=== PATIENT | male | born 1955 | race Caucasian/White ===

== ENCOUNTER → 2016-12-20 | Outpatient (CLI) | payer BC ==
[~2016-12-20] MED LIST: ALLO100T PO; ASPI-232 PO; ASPI81TA28 PO; ATOR-22 PO; COEN1CAP28 PO; MELO15TA4 PO; MULT-1093 PO; MULT-513 PO; OMEG10007 PO; PRED10TA PO; TRIA0.022 TOP
--- NOTE | 2016-12-20 15:41 | DIAGNOSTIC IMAGING REPORT ---
MRI CERVICAL WITHOUT CONTRAST CLINICAL HISTORY: NECK/ R ARM PAIN TECHNIQUE: Sagittal and axial T1, T2 and STIR images were obtained. COMPARISON STUDY: No previous studies for comparison. There are no suspicious areas of marrow replacement. No intrinsic cervical cord lesions are visualized. C2-3: There is no evidence of disc bulge or focal herniation. There is no spinal or foraminal stenosis. C3-4: There is no evidence of disc bulge or focal herniation. There is no spinal or foraminal stenosis. C4-5: There are no disc bulges or focal herniations. There is minor right-sided foraminal narrowing. C5-6 :There is a mild circumferential disc bulge. There is no significant spinal or foraminal stenosis C6-7: There is an annular fissure and mild circumference disc bulge. There is no significant spinal or foraminal stenosis. C7-T1: There is no evidence of disc bulge or focal herniation. There is no evidence of spinal or foraminal stenosis. There is a 24 mm left lobe thyroid nodule. A dedicated thyroid ultrasound is recommended in follow-up. IMPRESSION: 1. Multilevel spondylitic changes. Mild right-sided foraminal narrowing at the C4-5 level 2. 24 mm left lobe thyroid nodule. A dedicated thyroid ultrasound is recommended in follow-up 3. No intrinsic cord lesions identified. Electronically signed by: Rolan John M.D. 12/20/2016 3:40 PM Dictated Date/Time: 12/20/2016 3:35 PM
== END | disposition home or self-care (01) ==
LOC: C.MRIBC 14:40
PROVIDERS: ATTEND Orthopaedic Surgery
DX: M54.2 Cervicalgia (principal); M79.601 Pain in right arm; E04.1 Nontoxic single thyroid nodule

== ENCOUNTER 2017-01-08 15:02 | Emergency (ER) | payer OTHER, BC ==
[~2017-01-08] VITALS: Ht 170.2 cm; Wt 79.2 kg
[2017-01-08 15:15] VITALS: TEMP 37; Ht 170.2 cm; Wt 79.2 kg
[2017-01-08] MEDS ORDERED: ALLO100T PO (15:43)
[2017-01-08] MEDS ORDERED: ASPI-232 PO (15:43)
[2017-01-08] MEDS ORDERED: MULT-513 PO (15:43)
[2017-01-08] MEDS ORDERED: PRED10TA PO (15:43)
[2017-01-08] MEDS ORDERED: MELO15TA4 PO (15:43)
[2017-01-08] MEDS ORDERED: OMEG10007 PO (15:43)
[2017-01-08] MEDS ORDERED: SODIUM CHLORIDE 0.9% 1000ML 1,000 ML IV ONE (15:56)
[2017-01-08] MEDS ORDERED: SODIUM CHLORIDE 0.9% 1000ML 1,000 ML IV STA (15:56)
[2017-01-08] MEDS ORDERED: LIDOCAINE/EPINEPH/TETRACAINE 1 EA SYR EXT STA (16:08)
--- NOTE | 2017-01-08 16:13 | EMERGENCY ROOM VISIT NOTE ---
History Report prepared by Edel: Luiza Santiago Under the Supervision of: Dr. Pedrito Linares M.D. 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 The patient stats that he was walking up about 40 stairs at work and started to feel lightheaded and dizzy and he next remembers waking up on the concrete ground after having a syncopal episode. The patient states he believes he lost consciousness. The patient states that when he feel he believes he feel straight back onto his back. The patient states he does have some pain in the back of his head where he landed. The patient states that his coworkers found him on the ground and called for EMS. The patient denies biting his tongue, any involuntary movements, bladder or bowel control lost. The patient state that currently he had a headache located at the back of his head and his jaw feels like it is not aligned but states he is able to open and close his jaw. The patient states that he had a recent MRI for a bulging disc and just finished a prescription of prednisone. The patient states that he has had similar dizzy spells in the past when he was walking up stair but states that he has never lost consciousness in the past and states it would just resolve. The patient denies any back pain or neck pain. 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 Patient denies back pain, neck pain, lost control of bladder or bowels, bitting tongue, involuntary movements. Review of Systems See HPI for pertinent positives & negatives. A total of 10 systems reviewed and were otherwise negative. Past Medical & Surgical Medical Problems: (1) Bulging disc Old medical records were reviewed. Nurse's notes were reviewed and I agree with. Family History FH: heart disease Social History Smoking Status: Never Smoker Marital Status: Housing Status: lives with significant other Occupation Status: employed Current/Historical Medications Scheduled Allopurinol (Zyloprim), 1 TAB PO DAILY Aspirin (Aspir-81), 81 TAB PO DAILY Fish Oil ([place]-3), 1 CAP PO DAILY Meloxicam (Mobic), 15 MG PO DAILY Multivitamins/Minerals (Mvi With Minerals), 1 TAB PO DAILY Prednisone (Prednisone), 10 MG PO TAPER Physical Exam Vital Signs Date Time Temp Pulse Resp B/P Pulse Ox O2 Delivery O2 Flow Rate FiO2 01/08/17 19:30 67 01/08/17 19:13 70 18 148/89 95 Room Air 01/08/17 17:02 67 18 158/98 96 Room Air 01/08/17 15:26 64 01/08/17 15:15 37.0 64 18 158/98 94 Room Air Physical Exam General: Non ill appearing middle age male in no acute distress. HEENT: Normal cephalic atraumatic. Pupils are equal round and reactive to light. Extraocular movements are intact. Oropharynx is pink with moist mucous membranes. No swelling of the mouth lips or tongue. There is a 2 cm posterior scalp laceration Neck: Supple with a midline trachea. No meningeal signs or stiffness, no JVD or bruits. No Stridor. Chest: Clear to auscultation bilaterally. No wheezes or rhonchi. No increased work of breathing. Heart: regular rate and rhythm. Abdomen: Soft nontender, nondistended without rebound guarding or rigidity. Extremities: No cyanosis clubbing or edema. No calf tenderness or assymetry Spine/Back. Non tender to palpation. No CVA tenderness Skin: Good turgor without rashes. Neurologic exam: Cranial nerves two through 12 are intact. Motor and sensation are intact and symmetrical throughout. Medical Decision & Procedures ER Provider Diagnostic Interpretation: CT results as stated below per my review and radiologist interpretation: CERVICAL SPINE CT CT DOSE: HISTORY: Trauma. Pain. eval for trauma TECHNIQUE: Multiaxial CT images of the cervical spine were performed and reformatted in the sagittal and coronal plane without the use of contrast. COMPARISON: None. FINDINGS: No fractures. No subluxation. Prevertebral soft tissues and the C1-C2 interval are intact. No pneumothorax. IMPRESSION: No fractures within the cervical spine. Electronically signed by: Julio Cesar Hatch M.D. 01/08/2017 5:05 PM Dictated Date/Time: 01/08/2017 5:[address] CT DOSE: 1125.35 mGy.cm HISTORY: Trauma eval for trauma TECHNIQUE: Multiaxial CT images of the head were performed without the use of intravenous contrast. Comparison: None. Findings: The paranasal sinuses and mastoid air cells are clear. The calvarium and skull base are intact. The ventricles and sulci are within normal limits. There is no mass, hematoma, midline shift, or acute infarct. Impression: No acute intracranial abnormality. Electronically signed by: Julio Cesar Hatch M.D. 01/08/2017 4:59 PM Dictated Date/Time: 01/08/2017 4:[address] DOSE: HISTORY: Trauma eval for trauma TECHNIQUE: Multiaxial CT images of the maxillofacial region were performed and reformatted in the coronal plane without the use of contrast. COMPARISON: None. FINDINGS: The visualized cervical spine, skull base, pterygoid plates, nasal bones, lamina papyracea, orbital floors, mandible, and zygomatic arches are intact. No fractures. The orbits are unremarkable. IMPRESSION: No fractures within the maxillofacial region. Electronically signed by: Julio Cesar Hatch M.D. 01/08/2017 5:01 PM Dictated Date/Time: 01/08/2017 5:00 PM X-ray results as stated below per interpretation by me and the radiologist: CHEST ONE VIEW PORTABLE CLINICAL HISTORY: CHEST PAIN dyspnea COMPARISON STUDY: No previous studies for comparison. FINDINGS: The bones soft tissues and hemidiaphragms are normal. The cardiomediastinal silhouette is normal. The lungs are clear. The pulmonary vasculature is normal. Minimal atelectasis right base IMPRESSION: Negative chest. Minimal atelectasis right base. Electronically signed by: Julio Cesar Hatch M.D. 01/08/2017 4:34 PM Dictated Date/Time: 01/08/2017 4:33 PM Laboratory Results 01/08/17 16:23 Red Blood Count 5.22, Mean Corpuscular Volume 85.1, Mean Corpuscular Hemoglobin 29.7, Mean Corpuscular Hemoglobin Concent 34.9, Mean Platelet Volume 9.0, Neutrophils (%) (Auto) 62.5, Lymphocytes (%) (Auto) 28.9, Monocytes (%) (Auto) 7.0, Eosinophils (%) (Auto) 0.5, Basophils (%) (Auto) 0.1, Neutrophils # (Auto) 6.43, Lymphocytes # (Auto) 2.97, Monocytes # (Auto) 0.72, Eosinophils # (Auto) 0.05, Basophils # (Auto) 0.01 01/08/17 16:23 Test 01/08/17 15:20 01/08/17 16:23 01/08/17 16:31 Bedside Glucose 104 mg/dl (70-99) White Blood Count 10.28 K/uL (4.8-10.8) Red Blood Count 5.22 M/uL (4.7-6.1) Hemoglobin 15.5 g/dL (14.0-18.0) Hematocrit 44.4 % (42-52) Mean Corpuscular Volume 85.1 fL (80-100) Mean Corpuscular Hemoglobin 29.7 pg (25-34) Mean Corpuscular Hemoglobin Concent 34.9 g/dl (32-36) Platelet Count 179 K/uL (130-400) Mean Platelet Volume 9.0 fL (7.4-10.4) Neutrophils (%) (Auto) 62.5 % Lymphocytes (%) (Auto) 28.9 % Monocytes (%) (Auto) 7.0 % Eosinophils (%) (Auto) 0.5 % Basophils (%) (Auto) 0.1 % Neutrophils # (Auto) 6.43 K/uL (1.4-6.5) Lymphocytes # (Auto) 2.97 K/uL (1.2-3.4) Monocytes # (Auto) 0.72 K/uL (0.11-0.59) Eosinophils # (Auto) 0.05 K/uL (0-0.5) Basophils # (Auto) 0.01 K/uL (0-0.2) RDW Standard Deviation 39.7 fL (36.4-46.3) RDW Coefficient of Variation 13.0 % (11.5-14.5) Immature Granulocyte % (Auto) 1.0 % Immature Granulocyte # (Auto) 0.10 K/uL (0.00-0.02) Anion Gap 5.0 mmol/L (3-11) Est Creatinine Clear Calc Drug Dose 60.5 ml/min Estimated GFR () 75.2 Estimated GFR (Non- 64.9 BUN/Creatinine Ratio 23.8 (10-20) Calcium Level 8.8 mg/dl (8.5-10.1) Total Bilirubin 0.5 mg/dl (0.2-1) Direct Bilirubin 0.1 mg/dl (0-0.2) Aspartate Amino Transf (AST/SGOT) 8 U/L (15-37) Alanine Aminotransferase (ALT/SGPT) 31 U/L (12-78) Alkaline Phosphatase 60 U/L (45-117) Total Creatine Kinase 36 U/L (39-308) Creatine Kinase MB 0.6 ng/ml (0.5-3.6) Creatine Kinase MB Ratio 1.7 (0-3.0) Total Protein 6.0 gm/dl (6.4-8.2) Albumin 3.5 gm/dl (3.4-5.0) Lipase 339 U/L (73-393) Thyroid Stimulating Hormone (TSH) 1.440 uIu/ml (0.300-4.500) Bedside Troponin I 0.000 ng/ml (0-0.045) Laboratory studies as stated above per my review. Medications Administered Medications (Trade) Dose Ordered Sig/Donavan Route Start Time Stop Time Status Last Admin Dose Admin Sodium Chloride 1,000 ml @ 999 mls/hr Q1H1M STAT IV 01/08/17 15:56 01/08/17 16:56 DC 01/08/17 16:29 999 MLS/HR Sodium Chloride (Nss 1000ml) 1,000 ml @ 150 mls/hr Q6H40M ONCE IV 01/08/17 15:56 01/08/17 20:19 DC 01/08/17 15:56 150 MLS/HR Tetracaine/ Epinephrine/ Lidocaine (L.e.t. Gel 4%/ 1:100/0.5%) 1 ea NOW STAT EXT 01/08/17 16:08 01/08/17 16:09 DC 01/08/17 16:08 1 EA Aspirin (Aspirin Chew) 324 mg NOW STAT PO 01/08/17 19:11 01/08/17 19:12 DC 01/08/17 19:16 324 MG Procedure Location: Scalp Total length: 1.5 cm Complexity: Simple Verbal consent was obtained after the risks and benefits were explained, including but not limited to bleeding, scarring, infection, pain, and bone/ nerve damage. At this time, the risks of the procedure are less than the risks of NOT performing the procedure. A time out was taken and the correct patient and site identified. The scalp was prepped with betadine. Copious irrigation was performed using saline. The skin was re-prepped with betadine, the hair cleared from the wound, and a sterile field set. The wound was explored for foreign bodies and none found. Debridement was not performed. The wound edges were approximated using 4 surgical dasia in the standard fashion. Hemostasis and excellent approximation was achieved. Antibacterial ointment and a sterile dressing applied. Detailed wound care instructions and signs and symptoms of infection reviewed with the patient. No complications and the patient tolerated the procedure well. ECG Indication: syncope Rate (beats per minute): 64 Rhythm: normal sinus Findings: T-wave inversion (Lead 3 only), no acute ischemic change, no ectopy, other (Poor R wave progression ) Change: EKG #2: Normal sinus rhythm at a rate of 68. Poor R wave progression. T wave inversion lateral and inferior which are worse than previous EKG #1 ED Course 1527: At this time the patient was evaluated by the medical student. The student s findings were discussed with me. We discussed a possible treatment plan and differential diagnoses for the patient. 1555: Past medical records reviewed. The patient was evaluated in room A4B, and a complete history and physical examination were performed. 1556: Ordered Sodium Chloride 1,000 ml @ 150 mls/hr IV, Sodium Chloride 1,000 ml @ 999 mls/hr IV. 1608: Ordered Tetracaine/Epinephrine/Lidocaine 1 ea EXT. 1821: I reevaluated the patient along with the medical student. 191: Ordered Aspirin Chew 324 mg PO 1945: Upon reevaluation, the patient is hemodyncamilly stable. I discussed the results and treatment plan with him. He verbalized agreement of the treatment plan. The patient was discharged home. Medical Decision Differentials include, but are not limited to; syncope, arrhythmia, intracranial hemorrhage, and electrolyte or metabolic abnormality. This patient comes in as described above. He was placed in room A4. He was evaluated for a syncopal episode after walking up some steps and feeling dizzy. He's feeling better. He felt dizzy does get this and has been off her emiliano been getting worse lately. He did hit his posterior scalp and has a small scalp. His tetanus shot is up-to-date. He is no chest pain shortness breath or pleurisy. No numbness weakness. No fever chills or recent illness. He says he feels good and would like to go home. I did a CAT scan of his head neck and face which was unremarkable. He was complaining his jaw felt slightly off however clinically opens and closes without difficulty. There is no dental fracture anhis CAT scan is unremarkable. He has no acute electrolyte or metabolic abnormalities. Chest x-ray is unremarkable. His initial EKG had some T wave inversion in one lead . I did a follow-up EKG and he has more T wave inversions inferiorly and laterally. His troponin is negative. We repaired his laceration as outlined above. I talked to the patient and his at length. He adamantly does not want stay . I told him I'm concerned that this may have been cardiac related as it was exertional and he had a syncopal episode additionally does have some EKG changes that looked worse on the second than the first. I told him that I'm concerned that he could've a blockage or electrical problem with his heart which could cause him to have an irregular heartbeat or cause him to pass out or have a heart attack or . I told him that we should admit him to further evaluate this and for safety. He did get aspirin 324 mg chewable here the patient is adamant that he does not want to be admitted and he does understand the risk and my concerns. 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 I do want him to have very close follow-up if he is going to refuse admission. I also encouraged him return if he has recurrence of symptoms, chest pain, shortness of breath, any new problems or concerns. Again the patient and his were happy with plan and will have close follow-up tomorrow as he declines admission. Impression Primary Impression: Pneumonia Additional Impression: Weakness Scribe Attestation The scribe's documentation has been prepared under my direction and personally reviewed by me in its entirety. I confirm that the note above accurately reflects all work, treatment, procedures, and medical decision making performed by me. Departure Information Dispostion Home / Self-Care Referrals No Doctor, Assigned (PCP) Forms HOME CARE DOCUMENTATION FORM, IMPORTANT VISIT INFORMATION Patient Instructions [facility] Additional Instructions REst Drink plenty of fluids Use an enteric coated aspirin 324 mg one a day Return if:worsening of symptoms, chest pain, recurrance of symptoms, any new problems or concerns Follow-up with your doctor tommorrow for recehck Problem Qualifiers
--- NOTE | 2017-01-08 16:36 | DIAGNOSTIC IMAGING REPORT ---
CHEST ONE VIEW PORTABLE CLINICAL HISTORY: CHEST PAIN dyspnea COMPARISON STUDY: No previous studies for comparison. FINDINGS: The bones soft tissues and hemidiaphragms are normal. The cardiomediastinal silhouette is normal. The lungs are clear. The pulmonary vasculature is normal. Minimal atelectasis right base IMPRESSION: Negative chest. Minimal atelectasis right base. Electronically signed by: Julio Cesar Hatch M.D. 01/08/2017 4:34 PM Dictated Date/Time: 01/08/2017 4:33 PM
[2017-01-08 17:01] LABS: BASO % 0.1 %; BASO ABS # 0.01 K/uL (0-0.2); COMPLETE YES; EOS % 0.5 %; HEMATOCRIT 44.4 % (42-52); LYMPH % 28.9 %; LYMPH ABS # 2.97 K/uL (1.2-3.4); MEAN CELL VOLUME 85.1 fL (80-100); MEAN CORPUSCULAR HEMOGLOBIN 29.7 pg (25-34); MEAN CORPUSCULAR HGB CONC 34.9 g/dl (32-36); NEUT % 62.5 %; PLATELET COUNT 179 K/uL (130-400); RED BLOOD COUNT 5.22 M/uL (4.7-6.1); WHITE BLOOD COUNT 10.28 K/uL (4.8-10.8)
--- NOTE | 2017-01-08 17:01 | DIAGNOSTIC IMAGING REPORT ---
HEAD CT NONCONTRAST CT DOSE: 1125.35 mGy.cm HISTORY: Trauma eval for trauma TECHNIQUE: Multiaxial CT images of the head were performed without the use of intravenous contrast. Comparison: None. Findings: The paranasal sinuses and mastoid air cells are clear. The calvarium and skull base are intact. The ventricles and sulci are within normal limits. There is no mass, hematoma, midline shift, or acute infarct. Impression: No acute intracranial abnormality. Electronically signed by: Julio Cesar Hatch M.D. 01/08/2017 4:59 PM Dictated Date/Time: 01/08/2017 4:59 PM
--- NOTE | 2017-01-08 17:03 | DIAGNOSTIC IMAGING REPORT ---
MAXILLOFACIAL CT CT DOSE: HISTORY: Trauma eval for trauma TECHNIQUE: Multiaxial CT images of the maxillofacial region were performed and reformatted in the coronal plane without the use of contrast. COMPARISON: None. FINDINGS: The visualized cervical spine, skull base, pterygoid plates, nasal bones, lamina papyracea, orbital floors, mandible, and zygomatic arches are intact. No fractures. The orbits are unremarkable. IMPRESSION: No fractures within the maxillofacial region. Electronically signed by: Julio Cesar Hatch M.D. 01/08/2017 5:01 PM Dictated Date/Time: 01/08/2017 5:00 PM
--- NOTE | 2017-01-08 17:07 | DIAGNOSTIC IMAGING REPORT ---
CERVICAL SPINE CT CT DOSE: HISTORY: Trauma. Pain. eval for trauma TECHNIQUE: Multiaxial CT images of the cervical spine were performed and reformatted in the sagittal and coronal plane without the use of contrast. COMPARISON: None. FINDINGS: No fractures. No subluxation. Prevertebral soft tissues and the C1-C2 interval are intact. No pneumothorax. IMPRESSION: No fractures within the cervical spine. Electronically signed by: Julio Cesar Hatch M.D. 01/08/2017 5:05 PM Dictated Date/Time: 01/08/2017 5:01 PM
[2017-01-08 17:09] LABS: BUN/CREATININE RATIO 23.8 (10-20); CALCIUM 8.8 mg/dl (8.5-10.1); CREATININE 1.2 mg/dl (0.60-1.40)
[2017-01-08 17:20] LABS: CKMB/CK RATIO 1.7 (0-3.0); THYROID STIMULATING HORMONE 1.44 uIu/ml (0.300-4.500)
[2017-01-08] MEDS ORDERED: ASPIRIN 81 MG CHEW PO STA (19:11)
[2017-01-08 19:13] VITALS: BP 148/89; O2SAT 95
[2017-01-08 19:30] VITALS: PULSE 67
[2017-06-20] MEDS ORDERED: MULT-1093 PO (13:03)
[2017-06-20] MEDS ORDERED: ALLO100T PO (13:03)
[2017-06-20] MEDS ORDERED: TRIA0.022 TOP (13:03)
[2017-06-20] MEDS ORDERED: OMEG10007 PO (13:03)
[2017-06-20] MEDS ORDERED: COEN1CAP28 PO (13:03)
[2017-06-20] MEDS ORDERED: ATOR-22 PO (13:03)
[2017-06-20] MEDS ORDERED: ASPI81TA28 PO (13:03)
== END 2017-01-08 19:52 | disposition home or self-care (01) ==
LOC: EDBD 15:02 → C.EDA 15:04
DX: R55 Syncope and collapse (principal); S01.01XA Laceration without foreign body of scalp, initial encounter; W19.XXXA Unspecified fall, initial encounter; J18.9 Pneumonia, unspecified organism; R53.1 Weakness; Z79.82 Long term (current) use of aspirin; Z79.899 Other long term (current) drug therapy; Z82.49 Family history of ischemic heart disease and other diseases of the circulatory system

== ENCOUNTER 2017-01-14 09:54 | Emergency (ER) | payer BC ==
[~2017-01-14] VITALS: Ht 170.2 cm; Wt 78.7 kg
[~2017-01-14 09:54] MED LIST changes: -ASPI81TA28 PO; -ATOR-22 PO; -COEN1CAP28 PO; -MULT-1093 PO; -TRIA0.022 TOP
[2017-01-14 10:04] VITALS: BP 118/83; PULSE 68; TEMP 37; O2SAT 94; Ht 170.2 cm; Wt 78.7 kg
--- NOTE | 2017-01-14 16:44 | EMERGENCY ROOM VISIT NOTE ---
ED Visit Note First contact with patient: 10:06 CHIEF COMPLAINT: Staple removal HISTORY OF PRESENT ILLNESS: This 61-year-old male patient returns to the ED today for removal of dasia that were placed 6 days ago. There has been no swelling, redness, or drainage from the wound. The patient feels like the laceration is healing well. REVIEW OF SYSTEMS: A 6 system review of systems was completed with positives and pertinent negatives listed in the HPI. PMH: Unchanged from previous visit. ALLERGIES: No known allergies PHYSICAL EXAM: Vital Signs: Reviewed Nurse's notes, vital signs stable. GENERAL : White male, in no acute distress. SKIN: There is a stapled wound on the superior right-sided scalp with no signs of infection. There is no erythema, swelling, or tenderness. EMERGENCY DEPARTMENT COURSE: 5 dasia were removed without any difficulty and there was no separation of the wound edges. The patient was discharged home in good condition. Problem List Medical Problems: (1) Bulging disc Status: Chronic Current/Historical Medications Unable to Obtain Active Prescriptions or Reported Meds Vital Signs Date Time Temp Pulse Resp B/P Pulse Ox O2 Delivery O2 Flow Rate FiO2 01/14/17 10:04 37.0 68 18 118/83 94 Room Air Departure Information Impression Primary Impression: Encounter for removal of dasia Dispostion Home / Self-Care Condition GOOD Prescriptions Unable to Obtain Active Prescriptions or Reported Meds Referrals No Doctor, Assigned Forms HOME CARE DOCUMENTATION FORM, IMPORTANT VISIT INFORMATION Patient Instructions [facility], ED Scar Tips to Minimize, ED Stap Removal No Complication Additional Instructions Wash of any remaining debris and return to activity as normal.
[2017-06-20] MEDS ORDERED: COEN1CAP28 PO (13:03)
[2017-06-20] MEDS ORDERED: TRIA0.022 TOP (13:03)
[2017-06-20] MEDS ORDERED: ASPI81TA28 PO (13:03)
[2017-06-20] MEDS ORDERED: ALLO100T PO (13:03)
[2017-06-20] MEDS ORDERED: MULT-1093 PO (13:03)
[2017-06-20] MEDS ORDERED: OMEG10007 PO (13:03)
[2017-06-20] MEDS ORDERED: ATOR-22 PO (13:03)
== END 2017-01-14 10:24 | disposition home or self-care (01) ==
LOC: C.EDB 09:56 → C.EDD 10:24
DX: Z48.02 Encounter for removal of sutures (principal)

== ENCOUNTER → 2017-04-29 | Outpatient (CLI) | payer BC ==
[~2017-04-29] MED LIST changes: -ASPI-232 PO; +ASPI81TA28 PO; +ATOR-22 PO; +COEN1CAP28 PO; -MELO15TA4 PO; +MULT-1093 PO; -MULT-513 PO; -PRED10TA PO; +TRIA0.022 TOP
--- NOTE | 2017-04-29 13:48 | DIAGNOSTIC IMAGING REPORT ---
THYROID ULTRASONOGRAPHY CLINICAL HISTORY: THYROID NODULE COMPARISON STUDY: MRI the cervical spine dated 12/20/2016 FINDINGS: The right of the thyroid measures 55 x 14 x 14 mm. The left lobe of the thyroid measures 44 x 16 x 20 mm. There is a posterior mid pole circumscribed left lobe wider than tall thyroid nodule which is hypoechoic to the remaining gland. The nodule measures 30 x 17 x 12 mm. This meets size criteria for biopsy recommendation. IMPRESSION: 30 x 17 x 12 mm left lobe thyroid nodule. Fine-needle aspiration biopsy is recommended in follow-up. Electronically signed by: Rolan John M.D. 04/29/2017 1:47 PM Dictated Date/Time: 04/29/2017 1:44 PM
== END | disposition home or self-care (01) ==
LOC: C.ULTR 13:02
PROVIDERS: ATTEND Family Medicine
DX: E04.1 Nontoxic single thyroid nodule (principal)

== ENCOUNTER → 2017-05-05 | Outpatient (CLI) | payer BC ==
--- NOTE | 2017-05-05 14:10 | DIAGNOSTIC IMAGING REPORT ---
ULTRASOUND-GUIDED FINE-NEEDLE ASPIRATION THYROID CLINICAL HISTORY: 62-year-old male presents for biopsy of a 3 cm hypoechoic thyroid nodule. COMPARISON STUDY: Thyroid ultrasound 04/29/2017. PROCEDURE: The risks, benefits, and alternatives to the procedure were discussed with the patient. Written informed consent was obtained. The patient was placed supine in ultrasound, and the 3.0 cm nodule in the left lobe of the thyroid was localized by ultrasound and selected for fine needle aspiration. The left neck was prepped and draped in the usual sterile fashion. The nodule was aspirated under ultrasound guidance with 4 passes utilizing 25-gauge needles. Specimens were reviewed by the pathologist in real-time and deemed adequate for diagnosis. The pathologist did however note that more colloid groups would be preferable for definitive diagnosis. The patient tolerated the procedure well and left the department in satisfactory condition. IMPRESSION: Completed fine-needle aspiration of a left lobe thyroid nodule as above. The above report was generated using voice recognition software. It may contain grammatical, syntax or spelling errors. Electronically signed by: Johny Diaz M.D. 05/05/2017 2:08 PM Dictated Date/Time: 05/05/2017 2:00 PM
--- NOTE | 2017-05-05 14:24 | Discharge Instructions ---
Discharge Instructions Procedure Procedure Date: May 05, 2017. Reason for visit: Thyroid Nodule. Discharge Discharge Date: May 05, 2017. Discharge Diagnosis: Same Instructions Activity Recommendations: No limitations Return to School/Work: no limitations Recommended Home Diet: No Limitations, Resume Previous Diet Provider Instructions: ACTIVITY RECOMMENDATIONS: * Rest today. * Resume regular activity in one day. MEDICATIONS: * May take Tylenol or Ibuprofen as needed for pain. DIET: * Resume previous diet. SPECIAL CARE INSTRUCTIONS: Call your doctor if: * Temperature above 101 degrees F. * Pain not relieved by pain medicine ordered. * Increased drainage or redness from incision. * Notify your doctor with any questions or concerns. Call your doctor or go to the nearest Emergency Department if you experience: * Increased chest pain or shortness of breath. FOLLOW UP VISIT: Follow-up with Referring Physician as scheduled. Markie Sanchez Recommendations: Call your doctor if: * Temperature above 101 degrees * Pain not relieved by pain medicine ordered * There is increased drainage or redness from any incision * You have any unanswered questions or concerns. Your Doctors Instructions noted above were prepared by provider Jese Diaz. Patient Signature Section: Patient Instructions Signature Page Cheo Mitchell Patient (or Guardian) Signature/Date: I have read and understand the instructions given to me by my caregivers. Caregiver/RN/Doctor Signature/Date: The above-named patient and/or guardian has received patient instructions on this date. + Original Patient Signature Page (only) stays with chart. Please make copy for patient.
== END | disposition home or self-care (01) ==
LOC: C.ULTR 12:45
PROVIDERS: ATTEND Family Medicine
DX: E04.1 Nontoxic single thyroid nodule (principal)

== ENCOUNTER → 2017-07-02 | Day surgery (SDC) | payer BC ==
[2017-06-20 13:03] VITALS: BMI 25.0
[~2017-07-02] VITALS: Ht 170.2 cm; Wt 73.2 kg
[~2017-07-02] MED LIST changes: +ACETAMINOPHEN 325 MG TAB PO PRN; +ATROPINE SULFATE 0.1 MG/ML 5ML SYR IV PRN; +EpHEDrine SULFATE 50MG/5ML SYR ONE; +EpHEDrine SULFATE INJ 50 MG/ML AMP IV PRN; +FENTANYL CITRATE INJ 50 MCG/1 ML 2 ML VIAL IV PRN; +FENTANYL CITRATE INJ 50 MCG/1 ML 2 ML VIAL ONE; +ISOPROTERENOL 200 MCG / 50ML D5W IV ONE; +KEFZOL SPECIAL PROCEDURE STOCK 1 GM ADDVIAL IV ONE; +LACTATED RINGER'S 1000ML 1,000 ML IV SCH; +LIDOCAINE HCL 2% 2 ML VIAL (20MG/ML) ONE; +MIDAZOLAM HCL 1 MG/ML 2ML VIAL ONE; +ONDANSETRON INJ 2 MG/ML 2 ML VIAL IV PRN; +PHENYLEPHRINE 100MCG/ML 5ML SYR ONE; +PROPOFOL IV EMULSION 10 MG/ML 100 ML VIAL IV ONE; +PROPOFOL IV EMULSION 10 MG/ML 20 ML VIAL IV ONE
[2017-07-02 06:54] VITALS: BP 143/82; PULSE 65; TEMP 36.8; O2SAT 95; Ht 170.2 cm; Wt 73.2 kg
--- NOTE | 2017-07-02 08:11 | History & Physical Bridge Note ---
H&P Re-Evaluation Bridge Note: I have examined the patient, reviewed the History & Physical and in the interval since the performance of the History & Physical I have noted the following changes of clinical significance: No changes noted
--- NOTE | 2017-07-02 11:49 | Discharge Instructions ---
Discharge Instructions Date of Service Jul 02, 2017. Visit Reason for Visit: Syncope Discharge Discharge Diagnosis / Problem: SYNCOPE Discharge Goals Goal(s): Improve function Medications Stopped Medications Name(s): NONE Activity Recommendations Activity Limitations: as noted below Lifting Limitations: no more than 10 pounds (NO HEAVY LIFTING OR SQUATING FOR 1 WEEK) Shower/Bathe: tomorrow Driving or Machine Use: resume 1 day after discharge Anesthesia . Post Anesthesia Instructions: If you have had General Anesthesia or IV Sedation: * Do not drive today. * Resume driving when surgeon permits. * Do not make important decisions or sign legal documents today. * Call surgeon for: 1. Temperature elevations greater than 101 degrees F. 2. Uncontrollable pain. 3. Excessive bleeding. 4. Persistent nausea and vomiting. 5. Medication intolerance (nausea, vomiting or rash). * For nausea and vomiting use only clear liquids such as: tea, soda, bouillon until nausea subsides, then gradually increase diet as tolerated. * If you have any concerns or questions, call your surgeon's office. If physician is unavailable and it is an emergency, call 911 or go to the nearest emergency room. . Instructions / Follow-Up Instructions / Follow-Up ACTIVITY RECOMMENDATIONS: It is common to feel weak and fatigue for a few days. * Do not drive or operate any motorized equipment for the next 1 day. * Limit stair usage (2 or 3 trips a day only) for the next 1 day. * Do not lift anything heavier than 10 pounds for the next three days. * Do not engage in vigorous exercise or any sports for the next 7 days. * You may shower the day after your procedure, but do not immerse the area for three days. Cleanse the site gently with soap and water. SPECIAL CARE INSTRUCTIONS: * You may replace the pressure dressing or band-aid the morning after the procedure. * After your procedure, it is normal to have a small bruise or small lump at the site. Examine your site daily for any change in the bruise or lump, redness, swelling, drainage or numbness. Notify your doctor if any change. BLEEDING: * If there is a small amount of bleeding at the site, lie down and apply firm pressure with a clean cloth for ten minutes. When the bleeding stops, lie quietly keeping the procedure limb straight for six hours. Notify your doctor as soon as possible. * If the bleeding does not stop after ten minutes or if there is a large amount of bleeding or spurting, call 911 immediately. Continue to lie down and hold firm pressure until help arrives. SKIN IRRITATION: * You may experience some redness and/or swelling in the area where radiation was administered. If any skin irritation occurs, please contact your family physician. FOLLOW UP VISIT: Keep any scheduled doctor appointments. Diet Recommendations Recommended Home Diet: resume previous diet Procedures Procedures Performed: EPS, CARDIOVERSION, LINQ INSERTION, ISOPREL INFUSION Pending Studies Studies pending at discharge: no Medical Emergencies . Who to Call and When: Medical Emergencies: If at any time you feel your situation is an emergency, please call 911 immediately. . Non-Emergent Contact Non-Emergency issues call your: Group Work Program Aide . . "Provider Documentation" section prepared by Aaliyah Mccracken. .
--- NOTE | 2017-07-02 11:55 | [facility] Post Operative Brief Note ---
Immediate Operative Summary Operative Date Jul 02, 2017. Pre-Operative Diagnosis SYNCOPE AND LBBB Post-Operative Diagnosis SAME, NO INDUCIBLE SVT Procedure(s) Performed EPS, CARDIOVERSION, LINQ INSERTION, ISOPREL INFUSION Surgeon CAROLYN SCHULZ Acid Conditioning Worker Surgeon(s) NONE Estimated Blood Loss <5CC Findings SEE OFFICIAL REPORT Fluids (cc crystalloids) 500 Specimens NONE Drains NONE Anesthesia 4MG VERSED, 100MCG FENTATNYL, 1300MG PROPOFOL Complication(s) None Disposition [employer] OPER[employer] HOLDING
--- NOTE | 2017-07-02 13:33 | Anesthesiology Progress Note ---
Anesthesia Post Op Note Date & Time Jul 02, 2017 at 13:33 Vital Signs Pain Intensity: 0 Vital Signs Past 12 Hours Date Time Temp Pulse Resp B/P (MAP) Pulse Ox O2 Delivery O2 Flow Rate FiO2 07/02/17 13:20 75 16 129/84 (99) 96 Room Air 07/02/17 12:50 65 16 116/70 (85) 96 Room Air 07/02/17 12:35 62 16 118/72 (87) 96 Room Air 07/02/17 12:20 66 16 119/77 (91) 96 Room Air 07/02/17 12:05 77 16 123/72 (89) 96 Room Air 07/02/17 11:55 74 16 115/73 (87) 97 Room Air 07/02/17 11:45 89 16 116/74 (88) 98 Mask 10 07/02/17 06:54 36.8 65 16 143/82 (102) 95 Room Air Notes Mental Status: alert / awake / arousable, participated in evaluation Pt Amnestic to Procedure: Yes Nausea / Vomiting: adequately controlled Pain: adequately controlled Airway Patency, RR, SpO2: stable & adequate BP & HR: stable & adequate Hydration State: stable & adequate Anesthetic Complications: no major complications apparent
[2017-07-02 13:50] VITALS: BP 117/80; PULSE 77; O2SAT 96
== END ==
LOC: C.ACU 06:30
PROVIDERS: ATTEND Internal Medicine
DX: I47.1 Supraventricular tachycardia (principal); R55 Syncope and collapse; E78.5 Hyperlipidemia, unspecified; Z87.442 Personal history of urinary calculi

== ENCOUNTER → 2017-08-04 | Outpatient (CLI) | payer BC ==
[~2017-08-04] MED LIST changes: -ACETAMINOPHEN 325 MG TAB PO PRN; -ATROPINE SULFATE 0.1 MG/ML 5ML SYR IV PRN; -EpHEDrine SULFATE 50MG/5ML SYR ONE; -EpHEDrine SULFATE INJ 50 MG/ML AMP IV PRN; -FENTANYL CITRATE INJ 50 MCG/1 ML 2 ML VIAL IV PRN; -FENTANYL CITRATE INJ 50 MCG/1 ML 2 ML VIAL ONE; -ISOPROTERENOL 200 MCG / 50ML D5W IV ONE; -KEFZOL SPECIAL PROCEDURE STOCK 1 GM ADDVIAL IV ONE; -LACTATED RINGER'S 1000ML 1,000 ML IV SCH; -LIDOCAINE HCL 2% 2 ML VIAL (20MG/ML) ONE; -MIDAZOLAM HCL 1 MG/ML 2ML VIAL ONE; -ONDANSETRON INJ 2 MG/ML 2 ML VIAL IV PRN; -PHENYLEPHRINE 100MCG/ML 5ML SYR ONE; -PROPOFOL IV EMULSION 10 MG/ML 100 ML VIAL IV ONE; -PROPOFOL IV EMULSION 10 MG/ML 20 ML VIAL IV ONE
--- NOTE | 2017-08-08 08:53 | POLYSOMNOGRAPH REPORT ---
CLINICAL DATA: A 62-year-old male with BMI of [address] Pedrito Fernandez and myself with history of fatigue, snoring, and witnessed apnea. This has gotten better over the last 3 months since he lost weight. His Wren sleepiness score was 7/24. On the evening of 08/04/2017, a home sleep apnea test was performed using a [employer] type 3 monitor. RECORDER RESULTS: Total recording time was 10 hours. The patient's monitoring time and estimated sleep time was 10 hours. RESPIRATORY DATA: There was no evidence of clinically significant sleep apnea seen. The TABATHA was 4.1. There were 11 obstructive, 3 mixed, and 2 central apneic episodes. There were 25 hypopneic episodes. The longest respiratory event was 40 seconds. OXIMETRY DATA: Oxygen elvia was 69%. Mean saturation was 94%. Time below 89% was 6 minutes. HEART RATE DATA: Heart rates ranged from 36 to 63 beats per minute. 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 The pulse oximeter did come off the patient's finger for approximately 20 minutes during sleep from 11:57PM to 12:16AM. IMPRESSION: No evidence of clinically significant sleep apnea/hypopnea or sustained nocturnal hypoxemia. RECOMMENDATIONS: The patient should continue to practice good sleep hygiene. DOMENIC
== END | disposition home or self-care (01) ==
LOC: C.NEUR 19:15
PROVIDERS: ATTEND Internal Medicine Pulmonary Disease
DX: R55 Syncope and collapse (principal)

== ENCOUNTER → 2017-11-13 | Outpatient (CLI) | payer OTHER | END | disposition home or self-care (01) | LOC: C.LAB 14:25 | PROVIDERS: ATTEND Family Medicine | DX: R19.7 Diarrhea, unspecified (principal) ==